=== PATIENT | male | born 1995 | race Asian ===

== ENCOUNTER 2021-02-11 19:57 | Inpatient (IN) | payer MEDICAID, OTHER ==
[~2021-02-11] VITALS: Ht 165.1 cm; Wt 97.9 kg
[2021-02-11 21:13] LABS: COVID AG,FIA SOURCE NASOPHARYNGEAL; HEMATOCRIT 46.8 % (41-53); HEMOGLOBIN 15.7 g/dL (13.5-17.5); MEAN CORPUSCULAR HEMOGLOBIN 22.8 pg (26.0-34.0); MEAN CORPUSCULAR HGB CONC 33.5 G/dL (31.0-37.0); MEAN CORPUSCULAR VOLUME 68 fL (80-100); PLATELET COUNT (AUTO) 100 K/uL (150-450); RED BLOOD CELL COUNT(AUTO) 6.87 MIL/uL (4.50-5.90); RED CELL DISTRIBUTION WIDTH 13.7 % (11.5-14.5)
[2021-02-11] MEDS ORDERED: DEXAMETHASONE SOD PHOS 4 MG/ML 5 ML VIAL IVP ONE (21:15)
[2021-02-11] MEDS ORDERED: ENOXAPARIN SODIUM 60 MG/0.6 ML PF SYRINGE SQ ONE (21:15)
[2021-02-11] MEDS ORDERED: ACETAMINOPHEN 500 MG TABLET PO ONE (21:15)
[2021-02-11 21:28] LABS: ALANINE AMINOTRANSFERASE 129 U/L (12-78); ALBUMIN 3.9 g/dL (3.4-5.0); ALKALINE PHOSPHATASE 58 U/L (46-116); ANION GAP 12 mmol/L (8-16); ASPARTATE AMINOTRANSFERASE 123 U/L (15-37); BILIRUBIN,TOTAL 0.4 mg/dL (0.1-1.0); C-REACTIVE PROTEIN QUANT 2.74 mg/dL (0.00-0.30); CARBON DIOXIDE 25 mmol/L (22-29); CHLORIDE 83 mmol/L (98-107); CREATININE 0.98 mg/dL (0.60-1.30); GLOMERULAR FILTR. RATE CALC > 60 mL/min (>60); GLUCOSE,RANDOM 116 mg/dL (70-110); POTASSIUM 3.5 mmol/L (3.5-5.1); TOTAL PROTEIN, SERUM 8.3 g/dL (6.4-8.2); UREA NITROGEN, BLOOD 8 mg/dL (7-18)
[2021-02-11 21:31] LABS: SODIUM SERUM 120 mmol/L (136-145)
[2021-02-11 21:40] LABS: BAND NEUTROPHILS % (MANUAL) 11 % (0-5); LYMPHOCYTES % (MANUAL) 11 % (22-44); MONOCYTES % (MANUAL) 3 % (2-9); REACTIVE LYMPHOCYTES 4 % (0-0); SEGMENTED NEUTROPHILS % 71 % (40-70)
[2021-02-11] MEDS ORDERED: SODIUM CHLORIDE 0.9% 1,000 ML IV ONE (21:45)
[2021-02-11] MEDS ORDERED: AZITHROMYCIN 500 MG/NS 250 ML IV ONE (22:00)
[2021-02-11] MEDS ORDERED: ONDANSETRON HCL 4 MG/2 ML VIAL IVP PRN (22:00)
[2021-02-11] MEDS ORDERED: ENOXAPARIN SODIUM 40 MG/0.4 ML PF SYRINGE SQ ONE (22:00)
[2021-02-11] MEDS ORDERED: CefTRIAXone 1 GM/DEXTROSE 50 ML IV ONE (22:00)
[2021-02-11 22:16] LABS: ERYTHROCYTE SEDIMENTATION RATE 9 MM/HR (0-15)
[2021-02-11] MEDS: HEPARIN SODIUM,PORCINE 5,000 UNITS/ML VIAL SQ SCH (23:33)
[2021-02-11 23:45] LABS: C-REACTIVE PROTEIN QUANT 2.73 mg/dL (0.00-0.30)
[2021-02-12 05:09] LABS: HEMATOCRIT 46.2 % (41-53); HEMOGLOBIN 15.4 g/dL (13.5-17.5); MEAN CORPUSCULAR HEMOGLOBIN 22.7 pg (26.0-34.0); MEAN CORPUSCULAR HGB CONC 33.3 G/dL (31.0-37.0); MEAN CORPUSCULAR VOLUME 68 fL (80-100); PLATELET COUNT (AUTO) 122 K/uL (150-450); RED BLOOD CELL COUNT(AUTO) 6.75 MIL/uL (4.50-5.90); RED CELL DISTRIBUTION WIDTH 13.7 % (11.5-14.5)
[2021-02-12 05:34] LABS: BAND NEUTROPHILS % (MANUAL) 20 % (0-5); LYMPHOCYTES % (MANUAL) 14 % (22-44); MONOCYTES % (MANUAL) 8 % (2-9); SEGMENTED NEUTROPHILS % 58 % (40-70)
[2021-02-12 05:54] LABS: ALANINE AMINOTRANSFERASE 141 U/L (12-78); ALBUMIN 3.8 g/dL (3.4-5.0); ALKALINE PHOSPHATASE 55 U/L (46-116); ANION GAP 14 mmol/L (8-16); ASPARTATE AMINOTRANSFERASE 143 U/L (15-37); BILIRUBIN,TOTAL 0.4 mg/dL (0.1-1.0); CALCIUM, TOTAL 8.1 mg/dL (8.8-10.5); CARBON DIOXIDE 23 mmol/L (22-29); CHLORIDE 90 mmol/L (98-107); CREATININE 0.97 mg/dL (0.60-1.30); FERRITIN 2991 ng/mL (26-388); GLOMERULAR FILTR. RATE CALC > 60 mL/min (>60); GLUCOSE,RANDOM 112 mg/dL (70-110); POTASSIUM 3.5 mmol/L (3.5-5.1); SODIUM SERUM 127 mmol/L (136-145); TOTAL PROTEIN, SERUM 8.2 g/dL (6.4-8.2); UREA NITROGEN, BLOOD 6 mg/dL (7-18)
[2021-02-12 08:56] VITALS: BP 145/68
[2021-02-12] MEDS: HEPARIN SODIUM,PORCINE 5,000 UNITS/ML VIAL SQ SCH ×2 (09:49→15:20)
[2021-02-12 11:32] VITALS: BP 136/83
[2021-02-12] MEDS ORDERED: SODIUM CHLORIDE 0.9% 500 ML IV ONE (12:14)
[2021-02-12 12:38] LABS: APPEARANCE,URINE CLEAR (CLEAR); BILIRUBIN,URINE NEGATIVE (NEGATIVE); GLUCOSE, URINE (UA) NEGATIVE (NEGATIVE); KETONES,URINE 40 mg/dL (NEGATIVE); LEUKOCYTE ESTERASE ,URINE NEGATIVE (NEGATIVE); NITRATE,URINE NEGATIVE (NEGATIVE); OCCULT BLOOD,URINE MODERATE (NEGATIVE); PH,URINE 6.5 (5.0-8.0); PROTEIN,URINE SEE CONFIRM (NEGATIVE); UROBILINOGEN,URINE 0.2 mg/dL (<=1.0)
[2021-02-12] MEDS ORDERED: REMDESIVIR 200 MG in SODIUM CHLORIDE 0.9% 250 ML IV ONE (13:00)
[2021-02-12 13:04] LABS: BACTERIA,URINE None Seen /HPF (None Seen); RBC,URINE None Seen /HPF (0-2); SQUAMOUS EPITHELIAL CELL,UR Few /LPF (None Seen); SULFOSALICYLIC ACID,URINE 1+ (Negative); WBC,URINE None Seen /HPF (0-5)
[2021-02-12] MEDS: ACETAMINOPHEN 325 MG TABLET PO PRN ×3 (13:21→21:50)
[2021-02-12 14:37] LABS: ANION GAP 14 mmol/L (8-16); CALCIUM, TOTAL 8.1 mg/dL (8.8-10.5); CARBON DIOXIDE 20 mmol/L (22-29); CHLORIDE 88 mmol/L (98-107); CREATININE 0.76 mg/dL (0.60-1.30); GLOMERULAR FILTR. RATE CALC > 60 mL/min (>60); GLUCOSE,RANDOM 112 mg/dL (70-110); POTASSIUM 3.8 mmol/L (3.5-5.1); UREA NITROGEN, BLOOD 9 mg/dL (7-18)
[2021-02-12 14:45] LABS: SODIUM SERUM 122 mmol/L (136-145)
[2021-02-12 15:18] VITALS: BP 145/77
[2021-02-12] MEDS ORDERED: SODIUM CHLORIDE 0.9% 500 ML IV SCH (17:00)
[2021-02-12 19:27] VITALS: BP 148/73
[2021-02-12] MEDS: FAMOTIDINE 20 MG TABLET PO SCH (20:58)
[2021-02-12] MEDS: CHOLECALCIFEROL (VIT D3) 1,000 UNITS [25 MCG] TABLET PO SCH (20:58)
[2021-02-12] MEDS ORDERED: CefTRIAXone 1 GM/DEXTROSE 50 ML IV SCH (21:00)
[2021-02-12] MEDS: BENZONATATE 100 MG CAPSULE PO PRN (21:50)
[2021-02-12] MEDS ORDERED: AZITHROMYCIN 500 MG/NS 250 ML IV SCH (22:00)
[2021-02-12 23:38] VITALS: BP 126/96
[2021-02-13] MEDS: HEPARIN SODIUM,PORCINE 5,000 UNITS/ML VIAL SQ SCH ×4 (00:09→23:56)
[2021-02-13 04:05] VITALS: BP 166/88
[2021-02-13 07:08] LABS: HEMATOCRIT 44.2 % (41-53); HEMOGLOBIN 14.6 g/dL (13.5-17.5); MEAN CORPUSCULAR HEMOGLOBIN 22.6 pg (26.0-34.0); MEAN CORPUSCULAR HGB CONC 33.1 G/dL (31.0-37.0); MEAN CORPUSCULAR VOLUME 68 fL (80-100); PLATELET COUNT (AUTO) 105 K/uL (150-450); RED BLOOD CELL COUNT(AUTO) 6.46 MIL/uL (4.50-5.90); RED CELL DISTRIBUTION WIDTH 13.1 % (11.5-14.5)
[2021-02-13 07:12] LABS: BAND NEUTROPHILS % (MANUAL) 18 % (0-5); LYMPHOCYTES % (MANUAL) 16 % (22-44); MONOCYTES % (MANUAL) 7 % (2-9); SEGMENTED NEUTROPHILS % 59 % (40-70)
[2021-02-13 07:15] LABS: ANION GAP 16 mmol/L (8-16); CALCIUM, TOTAL 7.9 mg/dL (8.8-10.5); CARBON DIOXIDE 20 mmol/L (22-29); CHLORIDE 91 mmol/L (98-107); CREATININE 0.76 mg/dL (0.60-1.30); GLOMERULAR FILTR. RATE CALC > 60 mL/min (>60); GLUCOSE,RANDOM 104 mg/dL (70-110); POTASSIUM 3.5 mmol/L (3.5-5.1); SODIUM SERUM 127 mmol/L (136-145); THYROID STIMULATING HORMONE 0.53 uIU/mL (0.36-3.74); UREA NITROGEN, BLOOD 7 mg/dL (7-18)
[2021-02-13 07:22] VITALS: BP 119/83
[2021-02-13 07:40] LABS: ALANINE AMINOTRANSFERASE 116 U/L (12-78); ALBUMIN 3.3 g/dL (3.4-5.0); ALKALINE PHOSPHATASE 47 U/L (46-116); ANION GAP 13 mmol/L (8-16); ASPARTATE AMINOTRANSFERASE 134 U/L (15-37); BILIRUBIN,TOTAL 0.3 mg/dL (0.1-1.0); C-REACTIVE PROTEIN QUANT 4.77 mg/dL (0.00-0.30); CALCIUM, TOTAL 8.2 mg/dL (8.8-10.5); CARBON DIOXIDE 20 mmol/L (22-29); CHLORIDE 90 mmol/L (98-107); CREATININE 0.79 mg/dL (0.60-1.30); FERRITIN 3413 ng/mL (26-388); GLOMERULAR FILTR. RATE CALC > 60 mL/min (>60); GLUCOSE,RANDOM 102 mg/dL (70-110); POTASSIUM 3.6 mmol/L (3.5-5.1); TOTAL PROTEIN, SERUM 7.2 g/dL (6.4-8.2); UREA NITROGEN, BLOOD 7 mg/dL (7-18)
[2021-02-13 08:07] LABS: SODIUM SERUM 123 mmol/L (136-145)
[2021-02-13] MEDS: SODIUM CHLORIDE 1 GM TABLET PO SCH ×3 (09:21→20:32)
[2021-02-13] MEDS: BENZONATATE 100 MG CAPSULE PO PRN ×2 (09:21→23:56)
[2021-02-13] MEDS: CHOLECALCIFEROL (VIT D3) 1,000 UNITS [25 MCG] TABLET PO SCH (09:21)
[2021-02-13] MEDS: FAMOTIDINE 20 MG TABLET PO SCH ×2 (09:21→20:32)
[2021-02-13 11:15] VITALS: BP 133/75
[2021-02-13] MEDS: ACETAMINOPHEN 325 MG TABLET PO PRN ×2 (11:29→23:56)
[2021-02-13] MEDS: REMDESIVIR 100 MG in SODIUM CHLORIDE 0.9% 250 ML IV SCH (12:34)
[2021-02-13] MEDS ORDERED: IBUPROFEN 800 MG TABLET PO ONE (13:15)
[2021-02-13 16:47] LABS: APPEARANCE,URINE CLEAR (CLEAR); BILIRUBIN,URINE NEGATIVE (NEGATIVE); GLUCOSE, URINE (UA) NEGATIVE (NEGATIVE); KETONES,URINE 15 mg/dL (NEGATIVE); LEUKOCYTE ESTERASE ,URINE NEGATIVE (NEGATIVE); NITRATE,URINE NEGATIVE (NEGATIVE); OCCULT BLOOD,URINE SMALL (NEGATIVE); PH,URINE 6.5 (5.0-8.0); PROTEIN,URINE TRACE (NEGATIVE); UROBILINOGEN,URINE 0.2 mg/dL (<=1.0)
[2021-02-13 18:19] LABS: RBC,URINE 0-2 /HPF (0-2); WBC,URINE None Seen /HPF (0-5)
[2021-02-13 18:20] LABS: BACTERIA,URINE None Seen /HPF (None Seen); SQUAMOUS EPITHELIAL CELL,UR None Seen /LPF (None Seen)
[2021-02-13 19:42] VITALS: BP 121/70
[2021-02-13 23:52] VITALS: BP 154/82
[2021-02-14 05:21] VITALS: BP 141/66
[2021-02-14] MEDS: FAMOTIDINE 20 MG TABLET PO SCH ×2 (08:10→20:55)
[2021-02-14] MEDS: HEPARIN SODIUM,PORCINE 5,000 UNITS/ML VIAL SQ SCH ×2 (08:10→15:08)
[2021-02-14] MEDS: CHOLECALCIFEROL (VIT D3) 1,000 UNITS [25 MCG] TABLET PO SCH (08:10)
[2021-02-14] MEDS: SODIUM CHLORIDE 1 GM TABLET PO SCH ×3 (08:10→20:55)
[2021-02-14 08:26] VITALS: BP 126/66
[2021-02-14 09:05] LABS: BASOPHILS % (AUTO) 0.2 % (0.0-2.0); EOSINOPHILS % (AUTO) 0 % (1.0-6.0); HEMATOCRIT 44.3 % (41-53); HEMOGLOBIN 14.4 g/dL (13.5-17.5); LYMPHOCYTES # (AUTO) 0.7 K/uL (1.0-4.8); LYMPHOCYTES % (AUTO) 16.3 % (22.0-44.0); MEAN CORPUSCULAR HEMOGLOBIN 22.5 pg (26.0-34.0); MEAN CORPUSCULAR HGB CONC 32.5 G/dL (31.0-37.0); MEAN CORPUSCULAR VOLUME 69 fL (80-100); MONOCYTES # (AUTO) 0.4 K/uL (0.1-1.0); NEUTROPHILS # (AUTO) 3.3 K/uL (1.8-7.7); NEUTROPHILS % (AUTO) 74.5 % (40.0-70.0); PLATELET COUNT (AUTO) 139 K/uL (150-450); RED BLOOD CELL COUNT(AUTO) 6.41 MIL/uL (4.50-5.90); RED CELL DISTRIBUTION WIDTH 13.8 % (11.5-14.5)
[2021-02-14 10:05] LABS: ALANINE AMINOTRANSFERASE 95 U/L (12-78); ALBUMIN 3.2 g/dL (3.4-5.0); ALKALINE PHOSPHATASE 53 U/L (46-116); ANION GAP 9 mmol/L (8-16); ASPARTATE AMINOTRANSFERASE 111 U/L (15-37); BILIRUBIN,TOTAL 0.4 mg/dL (0.1-1.0); C-REACTIVE PROTEIN QUANT 5.11 mg/dL (0.00-0.30); CALCIUM, TOTAL 8.3 mg/dL (8.8-10.5); CARBON DIOXIDE 26 mmol/L (22-29); CHLORIDE 90 mmol/L (98-107); CREATININE 0.77 mg/dL (0.60-1.30); FERRITIN 3267 ng/mL (26-388); GLOMERULAR FILTR. RATE CALC > 60 mL/min (>60); GLUCOSE,RANDOM 99 mg/dL (70-110); PHOSPHORUS 2.2 mg/dL (2.5-4.9); SODIUM SERUM 125 mmol/L (136-145); TOTAL PROTEIN, SERUM 7.4 g/dL (6.4-8.2); UREA NITROGEN, BLOOD 7 mg/dL (7-18)
[2021-02-14 11:31] VITALS: BP 125/62
[2021-02-14] MEDS ORDERED: SODIUM CHLORIDE 0.9% 250 ML IV ONE (12:04)
[2021-02-14] MEDS: REMDESIVIR 100 MG in SODIUM CHLORIDE 0.9% 250 ML IV SCH (12:10)
[2021-02-14] MEDS: DEXAMETHASONE SOD PHOS 4 MG/ML VIAL IVP SCH (15:08)
[2021-02-14 16:05] VITALS: BP 123/69
[2021-02-14 20:30] VITALS: BP 147/81
[2021-02-14] MEDS: BENZONATATE 100 MG CAPSULE PO PRN (20:55)
[2021-02-14 23:05] VITALS: BP 139/81
[2021-02-15 03:33] VITALS: BP 148/71
[2021-02-15] MEDS: BENZONATATE 100 MG CAPSULE PO PRN ×3 (06:29→20:03)
[2021-02-15 07:40] VITALS: BP 133/87
[2021-02-15 08:05] LABS: BASOPHILS % (AUTO) 0.4 % (0.0-2.0); EOSINOPHILS % (AUTO) 0.1 % (1.0-6.0); HEMATOCRIT 44.2 % (41-53); HEMOGLOBIN 14.4 g/dL (13.5-17.5); LYMPHOCYTES # (AUTO) 0.7 K/uL (1.0-4.8); LYMPHOCYTES % (AUTO) 21.3 % (22.0-44.0); MEAN CORPUSCULAR HEMOGLOBIN 22.5 pg (26.0-34.0); MEAN CORPUSCULAR HGB CONC 32.6 G/dL (31.0-37.0); MEAN CORPUSCULAR VOLUME 69 fL (80-100); MONOCYTES # (AUTO) 0.6 K/uL (0.1-1.0); MONOCYTES % (AUTO) 18.9 % (2.0-9.0); NEUTROPHILS % (AUTO) 59.3 % (40.0-70.0); PLATELET COUNT (AUTO) 167 K/uL (150-450); RED BLOOD CELL COUNT(AUTO) 6.38 MIL/uL (4.50-5.90); RED CELL DISTRIBUTION WIDTH 13.7 % (11.5-14.5)
[2021-02-15] MEDS: APIXABAN 5 MG TABLET PO SCH ×2 (08:46→20:03)
[2021-02-15] MEDS: FAMOTIDINE 20 MG TABLET PO SCH ×2 (08:47→20:03)
[2021-02-15] MEDS: SODIUM CHLORIDE 1 GM TABLET PO SCH ×3 (08:47→20:03)
[2021-02-15] MEDS: CHOLECALCIFEROL (VIT D3) 1,000 UNITS [25 MCG] TABLET PO SCH (08:47)
[2021-02-15] MEDS ORDERED: DEXAMETHASONE 4 MG TABLET PO SCH (09:00)
[2021-02-15 09:05] LABS: ALANINE AMINOTRANSFERASE 107 U/L (12-78); ALKALINE PHOSPHATASE 64 U/L (46-116); ANION GAP 7 mmol/L (8-16); ASPARTATE AMINOTRANSFERASE 116 U/L (15-37); BILIRUBIN,TOTAL 0.4 mg/dL (0.1-1.0); C-REACTIVE PROTEIN QUANT 3.41 mg/dL (0.00-0.30); CALCIUM, TOTAL 8.3 mg/dL (8.8-10.5); CARBON DIOXIDE 27 mmol/L (22-29); CHLORIDE 97 mmol/L (98-107); CREATININE 0.65 mg/dL (0.60-1.30); FERRITIN 2952 ng/mL (26-388); GLOMERULAR FILTR. RATE CALC > 60 mL/min (>60); GLUCOSE,RANDOM 113 mg/dL (70-110); PHOSPHORUS 3.2 mg/dL (2.5-4.9); POTASSIUM 4.2 mmol/L (3.5-5.1); SODIUM SERUM 131 mmol/L (136-145); TOTAL PROTEIN, SERUM 7.2 g/dL (6.4-8.2); UREA NITROGEN, BLOOD 7 mg/dL (7-18)
[2021-02-15 11:25] VITALS: BP 153/54
[2021-02-15] MEDS: DEXAMETHASONE SOD PHOS 4 MG/ML VIAL IVP SCH (11:35)
[2021-02-15] MEDS: REMDESIVIR 100 MG in SODIUM CHLORIDE 0.9% 250 ML IV SCH (13:27)
[2021-02-15 16:55] VITALS: BP 130/86
[2021-02-15 19:45] VITALS: BP 138/50
[2021-02-16 00:10] VITALS: BP 132/83
[2021-02-16] MEDS: BENZONATATE 100 MG CAPSULE PO PRN ×4 (01:06→20:42)
[2021-02-16] MEDS: PROMETHAZINE HCL/CODEINE 6.25-10MG/5ML SYRUP UDCUP PO PRN ×2 (01:44→06:04)
[2021-02-16 05:47] VITALS: BP 130/87
[2021-02-16 07:13] LABS: BASOPHILS % (AUTO) 0.1 % (0.0-2.0); EOSINOPHILS % (AUTO) 0.1 % (1.0-6.0); HEMATOCRIT 43.4 % (41-53); LYMPHOCYTES # (AUTO) 0.9 K/uL (1.0-4.8); LYMPHOCYTES % (AUTO) 14.1 % (22.0-44.0); MEAN CORPUSCULAR HEMOGLOBIN 22.6 pg (26.0-34.0); MEAN CORPUSCULAR HGB CONC 32.4 G/dL (31.0-37.0); MEAN CORPUSCULAR VOLUME 70 fL (80-100); MONOCYTES # (AUTO) 0.8 K/uL (0.1-1.0); MONOCYTES % (AUTO) 13.2 % (2.0-9.0); NEUTROPHILS # (AUTO) 4.5 K/uL (1.8-7.7); NEUTROPHILS % (AUTO) 72.5 % (40.0-70.0); PLATELET COUNT (AUTO) 249 K/uL (150-450); RED BLOOD CELL COUNT(AUTO) 6.23 MIL/uL (4.50-5.90); RED CELL DISTRIBUTION WIDTH 13.8 % (11.5-14.5)
[2021-02-16 07:38] LABS: HEMOGLOBIN A1C 5.9 % (3.8-5.6)
[2021-02-16 07:40] VITALS: BP 130/75
[2021-02-16 07:58] LABS: ALANINE AMINOTRANSFERASE 166 U/L (12-78); ALBUMIN 3.1 g/dL (3.4-5.0); ALKALINE PHOSPHATASE 74 U/L (46-116); ANION GAP 13 mmol/L (8-16); ASPARTATE AMINOTRANSFERASE 125 U/L (15-37); BILIRUBIN,TOTAL 0.5 mg/dL (0.1-1.0); C-REACTIVE PROTEIN QUANT 1.59 mg/dL (0.00-0.30); CALCIUM, TOTAL 8.4 mg/dL (8.8-10.5); CARBON DIOXIDE 25 mmol/L (22-29); CHLORIDE 98 mmol/L (98-107); CREATININE 0.65 mg/dL (0.60-1.30); GLOMERULAR FILTR. RATE CALC > 60 mL/min (>60); GLUCOSE,RANDOM 110 mg/dL (70-110); POTASSIUM 3.9 mmol/L (3.5-5.1); SODIUM SERUM 136 mmol/L (136-145); TOTAL PROTEIN, SERUM 7.3 g/dL (6.4-8.2); UREA NITROGEN, BLOOD 8 mg/dL (7-18)
[2021-02-16] MEDS: FAMOTIDINE 20 MG TABLET PO SCH ×2 (08:40→20:38)
[2021-02-16] MEDS: SODIUM CHLORIDE 1 GM TABLET PO SCH ×3 (08:40→20:38)
[2021-02-16] MEDS: APIXABAN 5 MG TABLET PO SCH ×2 (08:40→20:38)
[2021-02-16] MEDS: CHOLECALCIFEROL (VIT D3) 1,000 UNITS [25 MCG] TABLET PO SCH (08:40)
[2021-02-16 11:32] VITALS: BP 129/80
[2021-02-16] MEDS: DEXAMETHASONE SOD PHOS 4 MG/ML VIAL IVP SCH (12:56)
[2021-02-16] MEDS: REMDESIVIR 100 MG in SODIUM CHLORIDE 0.9% 250 ML IV SCH (12:56)
[2021-02-16 16:15] VITALS: BP 127/81
[2021-02-16 20:54] VITALS: BP 121/88
[2021-02-17] MEDS: BENZONATATE 100 MG CAPSULE PO PRN ×3 (03:25→20:08)
[2021-02-17 04:30] VITALS: BP 132/97
[2021-02-17 08:10] VITALS: BP 138/102
[2021-02-17 08:18] LABS: BASOPHILS % (AUTO) 0.1 % (0.0-2.0); EOSINOPHILS % (AUTO) 0.5 % (1.0-6.0); HEMOGLOBIN 13.8 g/dL (13.5-17.5); LYMPHOCYTES # (AUTO) 1.3 K/uL (1.0-4.8); LYMPHOCYTES % (AUTO) 16.5 % (22.0-44.0); MEAN CORPUSCULAR HEMOGLOBIN 22.4 pg (26.0-34.0); MEAN CORPUSCULAR VOLUME 70 fL (80-100); MONOCYTES % (AUTO) 13.1 % (2.0-9.0); NEUTROPHILS # (AUTO) 5.3 K/uL (1.8-7.7); NEUTROPHILS % (AUTO) 69.8 % (40.0-70.0); PLATELET COUNT (AUTO) 306 K/uL (150-450); RED BLOOD CELL COUNT(AUTO) 6.15 MIL/uL (4.50-5.90); RED CELL DISTRIBUTION WIDTH 13.8 % (11.5-14.5)
[2021-02-17 08:37] LABS: ALANINE AMINOTRANSFERASE 278 U/L (12-78); ALKALINE PHOSPHATASE 79 U/L (46-116); ANION GAP 11 mmol/L (8-16); ASPARTATE AMINOTRANSFERASE 137 U/L (15-37); BILIRUBIN,TOTAL 0.5 mg/dL (0.1-1.0); C-REACTIVE PROTEIN QUANT 1.17 mg/dL (0.00-0.30); CALCIUM, TOTAL 8.3 mg/dL (8.8-10.5); CARBON DIOXIDE 26 mmol/L (22-29); CHLORIDE 100 mmol/L (98-107); CREATININE 0.65 mg/dL (0.60-1.30); GLOMERULAR FILTR. RATE CALC > 60 mL/min (>60); GLUCOSE,RANDOM 99 mg/dL (70-110); POTASSIUM 3.9 mmol/L (3.5-5.1); SODIUM SERUM 137 mmol/L (136-145); UREA NITROGEN, BLOOD 9 mg/dL (7-18)
[2021-02-17] MEDS: FAMOTIDINE 20 MG TABLET PO SCH ×2 (08:45→20:03)
[2021-02-17] MEDS: APIXABAN 5 MG TABLET PO SCH ×2 (08:45→20:03)
[2021-02-17] MEDS: CHOLECALCIFEROL (VIT D3) 1,000 UNITS [25 MCG] TABLET PO SCH (08:45)
[2021-02-17] MEDS: SODIUM CHLORIDE 1 GM TABLET PO SCH ×2 (08:45→20:04)
[2021-02-17] MEDS: DEXAMETHASONE SOD PHOS 4 MG/ML VIAL IVP SCH (12:27)
[2021-02-17 12:33] VITALS: BP 135/98
[2021-02-17 15:49] VITALS: BP 127/89
[2021-02-17 20:28] VITALS: BP 135/90
[2021-02-18] MEDS: BENZONATATE 100 MG CAPSULE PO PRN ×2 (00:50→12:09)
[2021-02-18 04:12] VITALS: BP 142/93
[2021-02-18 07:57] VITALS: BP 135/84
[2021-02-18 08:17] LABS: BASOPHILS % (AUTO) 0.5 % (0.0-2.0); EOSINOPHILS % (AUTO) 1.5 % (1.0-6.0); HEMATOCRIT 48.8 % (41-53); HEMOGLOBIN 15.4 g/dL (13.5-17.5); LYMPHOCYTES # (AUTO) 1.7 K/uL (1.0-4.8); LYMPHOCYTES % (AUTO) 18.8 % (22.0-44.0); MEAN CORPUSCULAR HEMOGLOBIN 22.5 pg (26.0-34.0); MEAN CORPUSCULAR HGB CONC 31.6 G/dL (31.0-37.0); MEAN CORPUSCULAR VOLUME 71 fL (80-100); MONOCYTES # (AUTO) 1.2 K/uL (0.1-1.0); NEUTROPHILS % (AUTO) 66.2 % (40.0-70.0); PLATELET COUNT (AUTO) 388 K/uL (150-450); RED BLOOD CELL COUNT(AUTO) 6.85 MIL/uL (4.50-5.90)
[2021-02-18] MEDS: FAMOTIDINE 20 MG TABLET PO SCH (08:31)
[2021-02-18] MEDS: APIXABAN 5 MG TABLET PO SCH (08:31)
[2021-02-18] MEDS: SODIUM CHLORIDE 1 GM TABLET PO SCH (08:31)
[2021-02-18] MEDS: CHOLECALCIFEROL (VIT D3) 1,000 UNITS [25 MCG] TABLET PO SCH (08:31)
[2021-02-18 08:39] LABS: ALANINE AMINOTRANSFERASE 314 U/L (12-78); ALBUMIN 3.5 g/dL (3.4-5.0); ALKALINE PHOSPHATASE 84 U/L (46-116); ANION GAP 8 mmol/L (8-16); ASPARTATE AMINOTRANSFERASE 106 U/L (15-37); BILIRUBIN,TOTAL 0.6 mg/dL (0.1-1.0); CALCIUM, TOTAL 9.1 mg/dL (8.8-10.5); CARBON DIOXIDE 28 mmol/L (22-29); CHLORIDE 98 mmol/L (98-107); CREATININE 0.63 mg/dL (0.60-1.30); GLOMERULAR FILTR. RATE CALC > 60 mL/min (>60); GLUCOSE,RANDOM 99 mg/dL (70-110); POTASSIUM 4.4 mmol/L (3.5-5.1); SODIUM SERUM 134 mmol/L (136-145); TOTAL PROTEIN, SERUM 7.9 g/dL (6.4-8.2); UREA NITROGEN, BLOOD 9 mg/dL (7-18)
[2021-02-18] MEDS: DEXAMETHASONE SOD PHOS 4 MG/ML VIAL IVP SCH (11:21)
[2021-02-18] MEDS ORDERED: NACL1 PO (13:31)
[2021-02-18] MEDS ORDERED: BENZ-70 PO (13:32)
[2021-02-18] MEDS ORDERED: ACET-2247 PO (13:33)
== END 2021-02-18 15:30 | disposition home or self-care (01) | DRG 720 ==
LOC: EMS 20:03 → 5N 02-12 06:07 → 6N 02-16 20:00
PROVIDERS: ADMIT Internal Medicine; ATTEND Internal Medicine
PROC: XW033E5 Introduction of Remdesivir Anti-infective into Peripheral Vein, Percutaneous Approach, New Technology Group 5 (ICD-10-PCS; principal; 2021-02-13)
DX: A41.9 Sepsis, unspecified organism (principal); J96.01 Acute respiratory failure with hypoxia; J12.82 Pneumonia due to coronavirus disease 2019; U07.1 COVID-19; E87.1 Hypo-osmolality and hyponatremia; E66.9 Obesity, unspecified; Z68.36 Body mass index [BMI] 36.0-36.9, adult; R79.82 Elevated C-reactive protein (CRP)
CPT/HCPCS: 71045; 80048; 80053; 81001; 81002; 82533; 82728; 83036; 83605; 83615; 83735; 83930; 83935; 84100; 84145; 84295; 84300; 84443; 84484; 85025; 85379; 85651; 86140; 87040; 93005; 99291; J0456; J0696; J1100; J1644; J1650; J2405; J7040; J7050; Q9967; 36415-L1; 36415-TC; U0003